=== PATIENT | male | born 1960 | race Caucasian/White ===

== ENCOUNTER 2017-08-12 06:38 | Observation (INO) | payer BC, OTHER ==
[2017-08-12] VITALS (8 sets, daily range): BP systolic 124–145; BP diastolic 60–90
[~2017-08-12] VITALS: Ht 175.3 cm; Wt 94.6 kg
--- NOTE | ~2017-08-12 | P ---
[facility] [place] [address] PROCEDURE REPORT Name: JOSE CARRASQUILLO Room #: 208-P [facility] Chandrika Flores#: [id number] Admission: 08/12/17 Attend Phys: Jose Luis Patterson MD Discharge: 08/13/17 Date of : 58 Report #: [id number] THIS REPORT FOR: //name// CC: Diallo Patterson DATE OF SERVICE: 08/12/2017 PREOPERATIVE DIAGNOSIS: Supraventricular tachycardia. 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 PROCEDURES PERFORMED: 1. Ablation treatment of SVT, CPT code 32988. 2. EP left atrial pacing and recording, 06388. 3. Program stimulation and pacing after IV drugs, CPT code 86781. 4. Intracardiac echo, CPT code 43166. 5. 3D mapping EP, CPT code 72522. 6. Mapping of tachycardia, 87923. 7. Transseptal puncture, CPT code 99708. 8. Secondary pathway ablation, CPT code 69894. HISTORY OF PRESENT ILLNESS: The patient is a 56-year-old male with a history of SVT, status post ablation back in 2011, for concealed accessory pathways. This was ablated by a transseptal approach and was acutely successful, but then he had clinical recurrence. For the past several years, he has been on sotalol, but continues to have breakthrough episodes. He is here for repeat ablation. ANESTHESIA: The patient underwent MAC anesthesia with no anesthesia related complications. PROCEDURE: The patient underwent informed consent where we discussed the details of the procedure including the risk, which included, but not limited to bleeding, vascular damage, cardiac perforation as well as stroke or [place]. He understood these risks and is willing to proceed. As such, he was brought to the EP laboratory in fasting and sedated state and prepped and draped in a sterile fashion. I injected lidocaine to the bilateral groin regions and obtained access to the bilateral femoral veins with sheaths positioned using the modified Seldinger technique. In the right femoral vein, I placed an 8-Turkmen and 6-Turkmen short sheath and in the left femoral vein, I placed a 6-Turkmen, 7-Turkmen and 9-Turkmen short sheath. Next, catheters were positioned under fluoroscopy. I placed 3 quadripolar catheters at the HRA, His, and RV positions. Next, a decapolar catheter was placed in the coronary sinus. Of note, placing the coronary sinus catheter was challenging as it would want to [address] [address] PROCEDURE REPORT Name: JOSE CARRASQUILLO Room #: 208-P [facility] Chandrika Flores#: [id number] Admission: 08/12/17 Attend Phys: Jose Luis Patterson MD Discharge: 08/13/17 Date of : 58 Report #: [id number] engage into a ventricular branch of the coronary sinus, I could not get it to entirely engage in the coronary sinus proper. Therefore, in order to see the most atrial signals possible, I the left CS9-10 slightly out of the ostium. Next, a basic EP study was performed. SVT was very easily inducible with any pacing maneuvers. At baseline, the patient was in sinus rhythm with a sinus cycle length of 835 milliseconds, WA interval 140 milliseconds, QRS duration 100 milliseconds, QT interval 392 milliseconds, AH interval of 83 milliseconds, and HV interval of 40 milliseconds. Next, atrial burst pacing induced SVT with a tachycardia cycle length of 290 milliseconds with the earliest atrial signal noted at CS5-6. This was entrained with evidence of a VAHV response consistent with an accessory pathway mediated tachycardia. Next, additional atrial pacing was performed and AV block was noted at 290 milliseconds, VA block was noted to be less than 250 milliseconds with an eccentric atrial activation with earliest activation at CS5-6. VA conduction was nondecremental. TRANSSEPTAL PROCEDURE: As such, the patient was prepped for a transseptal. I placed an ice catheter via the 9-Turkmen short sheath in the left femoral vein and I exchanged my HRA catheter and sheath for a SL1 sheath and a [place] needle. The patient was systemically heparinized and then a transseptal was performed. I was not able to advance the sheath over my wire, it appeared that the interatrial septum was fibrosed. As such, I opened a 10-Turkmen SL1 sheath and used this to help dilate the transseptal. After performing this, I was able to easily advance the SL1 sheath into the left atrium. Next, I placed a SmartTouch ThermoCool ablation catheter into the left atrium and I created a 3D map and activation map of the tachycardia. My initial map was performed while pacing the ventricle at 450 milliseconds looking for the earliest A. At a posterior septal location, there was clear fusion of the local electrogram on the ablation catheter. This correlated with the earliest site of activation. There was a nice unipolar signal as well. Ablation at this site resulted in a change in the retrograde activation pattern. Now, the coronary sinus was earliest at 3, 4. It appeared that this was likely another accessory pathway. We tried to induce tachycardia and the second tachycardia had a cycle length of 320 milliseconds with earliest activation at CS3-4. I initially tried to map this second pathway with ventricular pacing, but I could not find any area of fusion. I could not really find a early site either. I therefore decided to map this while in tachycardia, which allowed for better appearing signals. We narrowed it down more laterally than the initial ablation site. I therefore performed ablation at this site at [address] [place] and within 5-6 seconds, there was termination of the tachycardia. Post-ablation, we performed testing for approximately 20 minutes and there was clearly now concentric atrial activation while pacing the ventricle. Also, the VA conduction was different with a VA block noted at around 530 milliseconds. I gave IV adenosine and there was loss of VA conduction with no evidence of a pathway. I therefore continued to perform testing and while delivering single ventricular extrastimuli, I started noticing that there may be some return of conduction via the pathway. Therefore, we continued to perform testing and SVT was induced again. Therefore, for better [facility] [address] [place] [address] PROCEDURE REPORT Name: NEIDAJOSE Room #: 208-P SILAS Flores#: [id number] Admission: 08/12/17 Attend Phys: Jose Luis Patterson MD Discharge: 08/13/17 Date of : 58 Report #: [id number] stability, I decided to exchange my SL1 sheath for an Agilis sheath. This allowed for much better stability and better reach into the area where we had successfully terminated the tachycardia. Once I found a spot, catheter manipulation would easily result in termination in this location and in fact I could no longer induce the tachycardia if I left my catheter here. So, we decided to perform ablation at this site at [address] [place] and I performed a continuous 2 minute lesion set in this area and consolidated the prior ablation lesions that had initially terminated SVT #2. We therefore performed post-ablation testing and at this time for a period of 45 minutes, the tachycardia was no longer inducible. Post-ablation, VA block was noted at 500 milliseconds, it was both midline and decremental. AV block was noted at 290 milliseconds and again adenosine was administered and there was no evidence of conduction via an accessory pathway. Post-ablation, the patient was in sinus rhythm with a sinus rate of 625 milliseconds, WA interval 160 milliseconds, QRS duration 90 milliseconds, QT interval 360 milliseconds, AH interval 80 milliseconds, and HV interval of 40 milliseconds. As such, the procedure was concluded, transseptal sheath was pulled to the right atrium, intracardiac ultrasound was utilized to verify that there was no evidence of an effusion. Then, the patient received systemic protamine. Sheaths were pulled and hemostasis obtained. The patient awoke neurologically and hemodynamically intact with no complications and no significant bleeding. CONCLUSIONS: 1. Successful ablation of an accessory pathway located at a posterior septal location and a second pathway located more posterior location. 2. Normal SA hung function. 3. Normal AV hung function. 4. Normal His-Purkinje function. <ELECTRONICALLY SIGNED> By: Jose Luis Patterson MD 08/19/17 1749 [id number] 1736 Jose Luis Patterson MD /nt
[~2017-08-12 06:38] MED LIST: ASPIRIN EC325 M1 PO; FAMOTIDINE40 MG; NORVASC 5 MG TAB5 MG PO; TOPROL XL25 MG; VERAPAMIL ER240 MG
[2017-08-12] MEDS ORDERED: ASPIR 8181 MG PO (07:28)
[2017-08-12] MEDS ORDERED: OMEPRAZOLE 20 M20 M1 PO (07:29)
[2017-08-12] MEDS ORDERED: ROBITUSSIN COU118 M5 PO (07:30)
[2017-08-12] MEDS ORDERED: BENADRYL25 MG PO (07:31)
[2017-08-12] MEDS ORDERED: SORINE 80 MG TA80 M1 PO (07:31)
[2017-08-12] MEDS ORDERED: IBUPROFEN 200200 M1 PO (07:32)
[2017-08-12 07:37] LABS: HEMOGLOBIN 13.7 gm/dL (14.0-18.0); MCH 28.8 pg (26.0-34.0); MCHC 32.7 g/dL (28.0-37.0); MCV 88.1 fL (80.0-100.0); PLATELET COUNT 214 thou/uL (150-400); RBC 4.77 mil/uL (4.50-6.00); RDW 13.8 % (10.5-14.5); WBC 5.1 thou/uL (4.0-11.0)
[2017-08-12 07:41] LABS: APTT 26.3 Seconds (24.5-32.8); CALCIUM 9.1 mg/dL (8.5-10.1); CREATININE 0.9 mg/dL (0.7-1.3); POTASSIUM 4.3 mmol/L (3.5-5.1)
[2017-08-12 07:48] LABS: TOTAL BILIRUBIN 0.5 mg/dL (<0.1-1.0); TOTAL PROTEIN 7.6 g/dL (6.4-8.2)
[2017-08-12 08:55] LABS: ABSOLUTE NEUTROPHILS 2.6 thou/uL (1.4-8.2); ATYPICAL LYMPHS 4 %; PLATELET ESTIMATE NORMAL
[2017-08-13 05:19] VITALS: BP 143/71
[2017-08-13 08:14] VITALS: BP 139/68
[2017-08-13 10:13] VITALS: BP 139/68
== END 2017-08-13 11:50 | disposition home or self-care (01) ==
LOC: CATH 06:38 → 2N 07:58 → CATH 08:54 → 2N 14:38
PROVIDERS: Internal Medicine Cardiovascular Disease
DX: I47.1 Supraventricular tachycardia (principal); I10 Essential (primary) hypertension; G47.33 Obstructive sleep apnea (adult) (pediatric); Z87.891 Personal history of nicotine dependence
CPT/HCPCS: 62110; 62900; 70005

== ENCOUNTER → 2020-05-21 | Outpatient (CLI) | payer OTHER ==
[~2020-05-21] MED LIST changes: +ASPIR 8181 MG PO; +BENADRYL25 MG PO; +IBUPROFEN 200200 M1 PO; +OMEPRAZOLE 20 M20 M1 PO; +ROBITUSSIN COU118 M5 PO; +SORINE 80 MG TA80 M1 PO
== END ==
LOC: LAB 11:02
PROVIDERS: ATTEND Internal Medicine Cardiovascular Disease
DX: Z01.812 Encounter for preprocedural laboratory examination (principal); Z20.828 Contact with and (suspected) exposure to other viral communicable diseases

== ENCOUNTER → 2020-05-21 | Outpatient (CLI) | payer OTHER ==
[~2020-05-21] MED LIST changes: +FLECAINIDE ACET50 M2 PO; +PRADAXA150 MG PO
[2020-05-21 10:17] LABS: ABSOLUTE NEUTROPHILS 3.2 thou/uL (1.4-8.2); EOSINOPHILS 4.2 % (0.0-3.0); HEMATOCRIT 42.6 % (42.0-52.0); HEMOGLOBIN 14.2 gm/dL (14.0-18.0); LYMPHOCYTES 32.7 % (24.0-44.0); MCH 29.5 pg (26.0-34.0); MCHC 33.3 g/dL (28.0-37.0); MCV 88.7 fL (80.0-100.0); MONOCYTES 9.5 % (1.0-8.0); PLATELET COUNT 230 thou/uL (150-400); POLYS 52.6 % (36.0-66.0); RBC 4.81 mil/uL (4.50-6.00); RDW 13.3 % (10.5-14.5); WBC 6.1 thou/uL (4.0-11.0)
[2020-05-21 10:37] LABS: ALBUMIN 4.2 g/dL (3.4-5.0); CALCIUM 9.4 mg/dL (8.5-10.1); POTASSIUM 4.5 mmol/L (3.5-5.1); TOTAL BILIRUBIN 0.4 mg/dL (0.2-1.0); TOTAL PROTEIN 7.6 g/dL (6.4-8.2)
== END ==
LOC: CAT 09:53
PROVIDERS: ATTEND Internal Medicine Cardiovascular Disease
DX: I25.10 Atherosclerotic heart disease of native coronary artery without angina pectoris (principal); I48.91 Unspecified atrial fibrillation

== ENCOUNTER → 2020-05-26 | Outpatient (CLI) | payer OTHER ==
[~2020-05-26] VITALS: Ht 175.3 cm; Wt 95.3 kg
--- NOTE | ~2020-05-26 | P ---
[facility] [place] [address] PROCEDURE REPORT Name: JOSE CARRASQUILLO Room #: REG PABLO Sandra#: [id number] Admission: 05/26/20 Attend Phys: Jose Luis Patterson MD Discharge: Date of : 58 Report #: [id number] THIS REPORT FOR: cc: FAM - No family physician/PCP FAM - No family physician/PCP Jose Luis Patterson MD ~ DATE OF SERVICE: 05/26/2020 PREOPERATIVE DIAGNOSIS: Atrial fibrillation. POSTOPERATIVE DIAGNOSIS: Atrial fibrillation. PROCEDURES PERFORMED: 1. Comprehensive EP study, CPT code 46370. 2. EP with left atrial pacing and recording, CPT 82108. 3. Program stimulation pacing after IV drug infusion, CPT code 00535. 4. Atrial fibrillation ablation, CPT code 35095. 5. 3D mapping, CPT code 28107. 6. Intracardiac echo, CPT code 10116. HISTORY: The patient is a 59-year-old male with a history of prior ablations x 2. In 2011, he had ablation of a left-sided accessory pathway, but then had clinical recurrence. I performed an ablation on him in 08/2017 at which time he was found to have 2 left-sided pathways. Both pathways were left sided. One was located at around 6 o'clock on the mitral annulus and the other pathway was located around 8-9 o'clock on the mitral annulus. Both were successfully ablated. The patient did well until recently where he presented to the ER with palpitations and found to have new-onset atrial fibrillation. He is here for EP study, possible re-ablation of his pathways or possible ablation of atrial fibrillation. ANESTHESIA: The patient underwent general anesthesia with no anesthesia related complications. DESCRIPTION OF PROCEDURE: The patient underwent informed consent, where we discussed the details of the procedure including the risks, which include but not limited to bleeding, vascular damage, stroke, [place] as well as damage to the [place] conduction system. He understood these risks and is willing to proceed. The patient was brought to EP laboratory in a fasting and sedated state, prepped and draped in a sterile fashion. I obtained access to the right femoral vein x 3 and placing a 6, 9, and 6-S[place] Leonean short sheath in the left femoral vein, I placed a 6-[place] short sheath. Under fluoroscopy, I then placed 3 quadripolar catheters at the HRA, His and RV positions and a decapolar catheter in the coronary sinus for left atrial pacing and recording. I started by pacing the [facility] [address] [place] [address] PROCEDURE REPORT Name: JOSE CARRASQUILLO Room #: REG PABLO Sandra#: [id number] Admission: 05/26/20 Attend Phys: Jose Luis Patterson MD Discharge: Date of : 58 Report #: [id number] ventricle, which showed that VA conduction was both midline and decremental. Earliest atrial activation was at the His region. At the time of our ablation, his earliest atrial activation in 2018 was at around CS3-4. At baseline, the patient was in sinus rhythm with sinus cycle length 1415 milliseconds, SD interval 116 milliseconds, QRS duration 99 milliseconds, QT interval 40 milliseconds, AH interval 80 milliseconds, HV interval 39 milliseconds. Next, atrial burst pacing was performed and AV block was noted at 360 milliseconds. Next, a single atrial extrastimuli were delivered and with atrial extrastimuli, the patient went into atrial fibrillation with rapid bursts of atrial tachycardia arising from the atrium. A 200-joule cardioversion was performed and he immediately went back into atrial fibrillation. A second cardioversion at 200 joules was performed and he went immediately back into AFib as well. At this point, based on our EP study, there was no evidence of recurrence of his accessory pathways and appeared the patient had atrial fibrillation, unrelated to his prior pathways. The patient was therefore prepped for AFib ablation. I placed an ICE catheter into the right atrium and the patient was systemically heparinized. Using intracardiac ultrasound, the patient had two left and two right pulmonary veins. The 2 left sided veins were quite close potentially consistent with a common ostium. Next, a transseptal was performed using an SL1 sheath and a [place] needle. This was straightforward and I exchanged the SL1 sheath for the cryo sheath. Using the cryo sheath, I then placed a [employer] catheter in the left atrium and created a detailed 3D geometry of the left atrium and then the cryoballoon was placed in the left atrium. I then started by isolating the left superior pulmonary vein. I performed two 4-minute freezes in this vein, but this did not result in isolation. I had a very good seal with good waveforms and very good temperatures of -48 degrees. I suspected that I could not isolate this left superior pulmonary vein, as there was likely a connection from the eda between the left superior and left inferior pulmonary vein. Therefore, I went to the left inferior pulmonary vein and performed a 4-minute freeze, which resulted in isolation in 90 seconds and then performed an additional 4-minute freeze. I then re-interrogated the left superior pulmonary vein and this was now clearly isolated with entrance and exit block. I then turned my attention to the right-sided veins. Phrenic nerve pacing was performed using the decapolar catheter placed in the subclavian vessel. I performed an initial 4-minute freeze with good temps, but this did not result in isolation. I performed a second freeze of 120 seconds duration and came off performed a third freeze of 180 seconds and fourth freeze of 160 seconds, all with good temps, but would not result in isolation. I therefore performed an additional freeze of 3 minutes' duration, which resulted in isolation in 59 seconds. I then turned my attention to the right inferior pulmonary vein and performed a single 4-minute freeze as this vein isolated within 45 seconds. Next, I removed the cryoballoon from the left atrium and created a repeat voltage map and this showed that all 4 veins were now isolated. There was [facility] [address] [place] [address] PROCEDURE REPORT Name: JOSE CARRASQUILLO Room #: REG PABLO Patel.#: [id number] Admission: 05/26/20 Attend Phys: Jose Luis Patterson MD Discharge: Date of : 58 Report #: [id number] entrance and exit block in the veins as well. I therefore decided to repeat my EP study as the patient kept degenerating into AFib during the last attempt. AV block was noted at 340 milliseconds, AV hung ERP was noted at 250 milliseconds at a [address] cycle length. VA block was noted at 300 milliseconds and VA ERP was noted at 360 milliseconds at [address] cycle length with VA conduction that was both midline and decremental. Next, isoproterenol infusion was initiated at 1 mcg per minute and AV block was noted at 260 milliseconds. Atrial and ventricular pacing maneuvers were performed and there was no inducible atrial fibrillation or atrial flutter, nor was there any evidence of recurrence of his pathway, which I successfully ablated back in 2018. As such, the procedure was concluded. The patient received systemic protamine. Intracardiac ultrasound verified that there was no pericardial effusion. A [id number] suture was performed to the groin region. The patient awoke neurologically and hemodynamically intact. No complications and no significant bleeding. CONCLUSIONS: 1. Successful AFib ablation with isolation of the pulmonary veins. 2. Comprehensive EP study with no evidence of recurrence of his left-sided accessory pathways. By: 1249 [id number] Jose Luis Patterson MD /nt
[2020-05-26 07:12] VITALS: BP 159/84
[2020-05-26 07:56] LABS: ABSOLUTE NEUTROPHILS 3.4 thou/uL (1.4-8.2); BASOPHILS 0.7 % (0.0-2.0); EOSINOPHILS 3.7 % (0.0-3.0); HEMATOCRIT 43.4 % (42.0-52.0); HEMOGLOBIN 14.3 gm/dL (14.0-18.0); MCH 29.2 pg (26.0-34.0); MCV 88.4 fL (80.0-100.0); MONOCYTES 10.8 % (1.0-8.0); PLATELET COUNT 235 thou/uL (150-400); POLYS 51.8 % (36.0-66.0); RBC 4.91 mil/uL (4.50-6.00); RDW 13.6 % (10.5-14.5); WBC 6.5 thou/uL (4.0-11.0)
[2020-05-26 07:59] LABS: CALCIUM 9.3 mg/dL (8.5-10.1); CREATININE 1.1 mg/dL (0.7-1.3); POTASSIUM 4.5 mmol/L (3.5-5.1)
[2020-05-26 08:02] LABS: APTT 28.9 Seconds (24.5-32.8); PROTIME 10.3 Seconds (9.3-11.4)
[2020-05-26 08:05] LABS: ALBUMIN 4.1 g/dL (3.4-5.0); TOTAL BILIRUBIN 0.4 mg/dL (0.2-1.0); TOTAL PROTEIN 7.5 g/dL (6.4-8.2)
--- NOTE | 2020-05-26 13:35 | NUR ---
1330 stopcock pressure device removed from right groin. no bleeding, no hematoma. pressure held to groin for 2 minutes as a precaution. 4x4 and tegaderm pressure dressing applied. pt tolerated well.
== END | disposition home or self-care (01) ==
LOC: CATH 06:25
PROVIDERS: ATTEND Internal Medicine Cardiovascular Disease
DX: I48.91 Unspecified atrial fibrillation (principal); I10 Essential (primary) hypertension; E78.5 Hyperlipidemia, unspecified; G47.33 Obstructive sleep apnea (adult) (pediatric); F17.210 Nicotine dependence, cigarettes, uncomplicated; Z98.890 Other specified postprocedural states; Z79.899 Other long term (current) drug therapy; Z79.01 Long term (current) use of anticoagulants; Z90.49 Acquired absence of other specified parts of digestive tract; Z82.49 Family history of ischemic heart disease and other diseases of the circulatory system
CPT/HCPCS: 62110; 62900; 65020; 65040; 70005